=== PATIENT | female | born 1960 | race Caucasian/White ===

== ENCOUNTER 2016-11-01 08:52 | Emergency (ER) | payer MEDICAID | END 2016-11-01 12:44 | disposition home or self-care (01) | LOC: ER 08:52 | CPT/HCPCS: 36415; 71010; 80053; 81001; 82947; 83605; 85025; 85610; 87040; 93005 ==

== ENCOUNTER 2016-11-03 14:49 | Emergency (ER) | payer MEDICAID | END 2016-11-03 18:06 | disposition home or self-care (01) | LOC: ER 14:49 | DX: E11.649 Type 2 diabetes mellitus with hypoglycemia without coma (principal); Z79.4 Long term (current) use of insulin; Z79.899 Other long term (current) drug therapy; Z79.82 Long term (current) use of aspirin; F17.210 Nicotine dependence, cigarettes, uncomplicated; E78.00 Pure hypercholesterolemia, unspecified; I11.0 Hypertensive heart disease with heart failure; I50.9 Heart failure, unspecified; Z86.73 Personal history of transient ischemic attack (TIA), and cerebral infarction without residual deficits | CPT/HCPCS: 36415; 71010; 80053; 81001; 82947; 83605; 85025; 87040; 93005 ==